=== PATIENT | female | born 1975 | race Caucasian/White ===

== ENCOUNTER → 2016-11-26 | Outpatient (CLI) | payer OTHER | END | disposition home or self-care (01) | LOC: GMA 12:12 | PROVIDERS: ATTEND Nurse Practitioner Acute Care | DX: R53.83 Other fatigue (principal) ==

== ENCOUNTER → 2017-03-04 | Outpatient (CLI) | payer OTHER | END | disposition home or self-care (01) | LOC: GMA 14:59 | PROVIDERS: ATTEND Nurse Practitioner Acute Care | DX: E53.9 Vitamin B deficiency, unspecified (principal); E03.9 Hypothyroidism, unspecified ==

== ENCOUNTER → 2018-03-04 | Outpatient (CLI) | payer OTHER | LOC: GMAJ 15:01 | PROVIDERS: ATTEND Family Medicine | DX: M79.1 Myalgia (principal); R53.83 Other fatigue; J30.1 Allergic rhinitis due to pollen ==

== ENCOUNTER → 2020-08-14 | Outpatient (CLI) | payer OTHER | LOC: GMAJ 15:09 | PROVIDERS: ATTEND Family Medicine | DX: Z79.899 Other long term (current) drug therapy (principal); R73.9 Hyperglycemia, unspecified ==